=== PATIENT | male | born 1945 | race Caucasian/White ===

== ENCOUNTER 2023-12-10 13:40 | Outpatient (CLI) | payer MEDICARE, SELFPAY ==
--- NOTE | ~2023-12-10 | XR_ITS ---
EXAMINATION: XR chest 2V 12/10/2023 14:03 INDICATION: Shortness of breath with exertion PROCEDURE: 2 view chest COMPARISON: 09/03/2022 FINDINGS: The lungs are clear. The cardiomediastinal silhouette is within normal limits. There are no pleural effusions. There is no pneumothorax suspected. 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 There is dextroscoliosis. IMPRESSION: 1: NO ACUTE CARDIOPULMONARY DISEASE. Reviewed, dictated and finalized at location B.
== END 2023-12-10 13:41 | disposition home or self-care (01) ==
PROVIDERS: PCP Physician Assistant Medical; Visit Provider Internal Medicine Pulmonary Disease
DX: R06.02 Shortness of breath (principal); R06.09 Other forms of dyspnea
CPT/HCPCS: 71046

== ENCOUNTER 2025-03-01 15:33 | Outpatient (CLI) | payer MEDICARE, SELFPAY ==
--- NOTE | ~2025-03-01 | XR_ITS ---
XR lumbar spine min 4V INDICATION:M48.062 - Spinal stenosis, lumbar region with neurogenic ... REFERENCE: None TECHNIQUE: AP, lateral and oblique views of the lumbar spine as well as coned- down views of L5-S1 were obtained. FINDINGS: Superior endplate depression of L1 and L2 vertebral body may be degenerative or reflective of chronic degenerative changes. There is levoscoliosis centered at L2-L3 levels. Degenerative changes with disc space narrowing and anterior osteophytes are noted. No acute appearing compression fracture or spondylolysis. Flexion and extension views demonstrate no significant instability. IMPRESSION: No acute compression fracture or spondylolysis. Degenerative changes as above. Reviewed, dictated and finalized at location S. E SYSTEMS INSTALLER
--- NOTE | ~2025-03-01 | XR_ITS ---
EXAM/PROCEDURE: XR scoliosis survey HISTORY: M48.062 - Spinal stenosis, lumbar region with neurogenic ... COMPARISON: None available. TECHNIQUE: Scoliosis survey FINDINGS: Sigmoidal scoliotic curvature of the thoracolumbar spine present with the dominant curvature being 15 degrees of levoscoliosis No gross acute or aggressive bony or soft tissue process seen. No obvious segmentation anomaly seen. as measured along the anterior endplate of L2 and superior endplate of L4. Less than 10 degrees compensatory dextroscoliosis of the thoracic spine present as measured from the inferior endplate of T5, and inferior endplate of T10. Diffuse degenerative changes throughout the thoracolumbar spine. IMPRESSION: Mild sigmoidal scoliotic curvature with the dominant curvature being approximately 15 degrees of levoscoliosis of the lumbar spine as detailed above. Reviewed, dictated and finalized at location A. WASHER BUSSER IMPRESSION: Mild sigmoidal scoliotic curvature with the dominant curvature bein g approximately 15 degrees of levoscoliosis of the lumbar spine as detailed abo ve.
--- NOTE | ~2025-03-01 | CT_ITS ---
EXAMINATION: CT lumbar spine wo con DATE: 03/01/2025 16:08 INDICATION: Lumbar spinal stenosis TECHNIQUE: Computed tomography (CT) of the lumbar spine was performed without intravenous contrast. Automated exposure control and iterative reconstruction technique were employed. The dose-length product was 840.63 mGy-cm. COMPARISON: Radiographs dated 09/15/2024 FINDINGS: 20 degree thoracolumbar levoscoliosis. L5 spondylolysis with bilateral pars intra-articular is defects and 6 mm anterolisthesis on S1. Unchanged chronic mild anterior wedging at T10-T12. Lumbar vertebral body heights are normal. No fractures. There are solidly bridging osteophytes extending from T10 through L3, nearly bridging osteophytes at L4-L5 and L5-S1 and ankylosis of the bilateral sacroiliac joints, all consistent with diffuse idiopathic skeletal hyperostosis (DISH). Moderate disc height loss at T10-T11 with minimal to mild disc height loss at remaining levels from T9-T10 through L5-S1. 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 There is no neural foraminal stenosis. There is no central canal stenosis. T10-T11: Small right paracentral disc protrusion. There is mild left and moderate right facet osteoarthritis. There is mild right neural foraminal stenosis. There is mild central canal stenosis. T11-T12: There is moderate left and severe right facet joint osteoarthritis. There is mild bilateral neural foraminal stenosis. There is no central canal stenosis. T12-L1: Disc is mildly bulging. There is moderate left and severe right facet joint osteoarthritis. There is mild right neural foraminal stenosis. There is minimal central canal stenosis. L1-L2: Disc is mildly bulging. There is mild left and moderate right facet joint osteoarthritis. There is mild left and moderate right neural foraminal stenosis. There is mild central canal stenosis. L2-L3: Disc is bulging. There is severe bilateral facet joint osteoarthritis. There is mild left and mild to moderate right neural foraminal stenosis. There is moderate central canal stenosis. L3-L4: Disc is bulging. There is severe bilateral facet joint osteoarthritis. There is moderate left and moderate to severe right neural foraminal stenosis. There is moderate to severe central canal stenosis. L4-L5: Disc is bulging. There is severe bilateral facet joint osteoarthritis. There is moderate left and mild to moderate right neural foraminal stenosis. There is mild central canal stenosis. L5-S1: Disc is bulging. 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 There is mild right and moderate left neural foraminal stenosis. There is mild central canal stenosis. IMPRESSION: 1. 20 degree thoracolumbar levoscoliosis with bridging osteophytes from T9 through T3 and nearly bridging osteophytes and lower lumbar spine consistent with diffuse idiopathic skeletal hyperostosis (DISH). 2. mild spondylosis most notable for moderate to severe central canal and right sided neural foraminal stenosis at L3-L4. 2. L5 spondylolysis with bilateral pars interarticularis defects and 6 mm anterolisthesis on S1. Reviewed, dictated and finalized at location A. [facility] [facility] [employer] IMPRESSION: 1. 20 degree thoracolumbar levoscoliosis with bridging osteophytes from T9 thro ugh T3 and nearly bridging osteophytes and lower lumbar spine consistent with d iffuse idiopathic skeletal hyperostosis (DISH). 2. mild spondylosis most notable for moderate to severe central canal and right sided neural foraminal stenosis at L3-L4. 2. L5 spondylolysis with bilateral pars interarticularis defects and 6 mm anter olisthesis on S1.
--- OUTSIDE RECORDS SUMMARY | 2025-03-01 16:13 | XMS_ITS | Encounter Summary ---
Author Organization [facility] Address [facility] [place] [address] Care Team Providers Care Director Work Name Role Phone None, Provider Primary Care Provider Loretta Artis PA-C Primary Care Provider +1- [phone] Encounter Details Date Type Department Care Team (Late st Contact Info) Description 07/23/2015 Abstract [facility] CONVERSION [address] [place] [address] , Generic Conversion, Social History Tobacco Use Types Packs/Day Years Used Date Smoking Tobacco: Former Sex and Gender Information Value Date Recorded Sex Assigned at Not on file Legal Sex Male 5:01 PM CDT Gender Identity Not on file Sexual Orientation Not on file documented as of this encounter Plan of Treatment Not on file documented as of this encounter Visit Diagnoses Not on filedocumented in this encounter Additional Health Concerns Infection Onset Date Last Indicated Resolved Time 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
--- OUTSIDE RECORDS SUMMARY | 2025-03-01 16:13 | XMS_ITS | Data Portability ---
Author Organization [place] [facility] [employer], Main Office Address [address] [place] [address] Assessment Encounter Date Assessment Date Assessment LastModified by Organization Details LastModified Time 09/22/2022 09/22/2022 Impression: Patient has well-functioning right knee Nav[place] partial knee replacement medial compartment from 2016 and left knee total knee arthroplasty from 2011. His main problem is exercised induced shortness of breath and exhaustion. I would recommend that he return to see the business support liaison for further evaluation. He may need an echocardiogram and may need to consider cardiac catheterization to rule out false negative stress test. If these are negative then pulmonary evaluation may be indicated. I will be happy to see him back in 5 years for routine radiographic surveillance of both of his knee replacements and coursing he has any problems in the meantime he will call. 30 minutes were spent total care this patient more than half the time spent in [id number] care. [email or web address] Not available 09/22/2022 14:53:11 Plan of Treatment Reminders Order Date Submit Date Provider Last Modified By Organization Details Last Modified Time Details Appointments None record ed. Lab None record ed. Referral None record ed. Procedures None record ed. Surgeries None record ed. Imaging XR, knee 023 09/23/19 23 [email or web address] [place], [address], [place], [address], 3 16:12:26 Medication Orders None record ed. Patient TargetsNo targets recorded. Patient InstructionsNo instructions recorded. Reason for Referral None Reported. Results Created Date Observation Date Name Description Value Unit Range Abnormal Flag Note LastModifiedBy Organization Detail LastModifiedTime 09/23/19 XR, knee No observ ation record ed. [email or web address] [facility] [place] [address], [place], [address], 09/22/2022 14:53:57 Result Notes None recorded. 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 Medical Equipment None Reported. Medications Name Sig Start Date Stop Date Status Note LastModified by Organization Details LastModified Time celecoxib 200 mg capsule 09/05 completed Not Available Not Available Not Available amoxicillin 500 mg capsule 09/05 completed Not Available Not Available Not Available prednisone 10 mg tablet TAKE 3 TABS DAILY FOR 3DAYS, THEN 2 TABS DAILY FOR 3DAYS, THEN 1 TAB DAILY FOR 3DAYS 09/22 completed Not Available Not Available Not Available azithromyci n 250 mg tablet 09/05 completed Not Available Not Available Not Available hydrocodone 5 mg-acetamin ophen 325 mg tablet 09/05 completed Not Available Not Available Not Available phenazopyri dine 200 mg tablet TAKE 1 TABLET BY MOUTH THREE TIMES A DAY NEEDED FOR PAIN 09/22 completed Not Available Not Available Not Available amlodipine 5 mg tablet TAKE 1 TABLET BY MOUTH EVERY DAY 09/22 completed Not Available Not Available Not Available ciprofloxac in 500 mg tablet 09/05 completed Not Available Not Available Not Available hydrocodone 10 mg-acetamin ophen 325 mg tablet 09/05 completed Not Available Not Available Not Available oxycodone-a cetaminophe n 5 mg-325 mg tablet 09/05 completed Not Available Not Available Not Available amoxicillin 875 mg tablet 09/05 completed Not Available Not Available Not Available aspirin 325 mg tablet,lady yed release TAKE 1 TABLET BY MOUTH TWICE A DAY 09/05 completed Not Available Not Available Not Available tamsulosin 0.4 mg capsule 09/05 completed Not Available Not Available Not Available meclizine 25 mg tablet TAKE 1 TABLET BY MOUTH THREE TIMES A DAY NEEDED FOR DIZZINESS 09/22 completed Not Available Not Available Not Available oseltamivir 75 mg capsule 09/05 completed Not Available Not Available Not Available docusate sodium 100 mg capsule TAKE 1 CAPSULE BY MOUTH DAILY FOR 10 DAYS. 09/22 completed Not Available Not Available Not Available levofloxaci n 500 mg tablet 09/05 completed Not Available Not Available Not Available levofloxaci n 750 mg tablet 09/05 completed Not Available Not Available Not Available amoxicillin 875 mg-potassiu m clavulanate 125 mg tablet TAKE 1 TABLET BY MOUTH TWICE A DAY 09/22 completed Not Available Not Available Not Available Vitals Date Recorded Body height Body mass index (BMI) Body weight Provider Name and Address Organization Details Last Updated DateTime 09/22/2022 165.1 cm 32.3 kg/m2 37115.92 g ABBIE Lowery [facility] [employer] 09/22/2022 14:20:37 Social History None recorded. Functional Status Question Answer Note LastModified by Organization D etails LastModified Time What is your level of alcohol consumption? None [email or web address] Information not available 09/22/2022 Mental Status None recorded. Family History Nothing Reported. Medical History Condition Response ARTHRITIS Y Past Encounters Encounter ID Performer Location Encounter Start Date Encounter Closed Date Diagnosis/Indication Diagnosis SNOMED-CT Code Diagnosis ICD10 Code Diagnosis IMO Codes Diagnosis Note [id number] Mario Alberto Dahl MD [facility] [place] [address] [place] [address] 09/22/2022 13:59:49 09/22/2022 15:30:33 Pain of bilateral knee joints 9265908606 64883 M25.561 M25.562 Health Concerns Section Related Observation LastModified by Organization Detai ls LastModified Time None Recorded Concern Status LastModified by Organization Details LastModified Time None Recorded Advance Directives Directive None Recorded Payers Insurance Date Sequence Insurance Name Policy Number Policy Mccullough Covered Member ID Mccullough Member ID Guarantor Name 09/10/2022 1 [employer] [id number] Mandeep Barrett [id number] Mandeep Barrett 09/25/2022 1 [employer] (MEDICARE REPLACEMENT /ADVANTAGE - PPO) [id number] Brandon Barrett [id number] Mandeep Barrett Notes Date Note Type Note Provider Name and Address Organization Details Recorded Time 09/22/2022 text/html Patient returns. He is now 6 years after Navajo partial knee replacement right knee. He is now 11 years after total knee replacement left knee done by Dr. Saucedo. He is having no pain or symptoms in either knee. his chief complaint though is excessive exercised induced fatigue. He gets short of breath walking. He cannot walk half a block before he has to sit down because he feels out of breath and exhausted. He does not get any numbness or tingling in his legs he denies any back pain he denies any pain or other symptoms in his legs. He had a retired 2 years ago. He had been walking 3-4 miles every night at work and could not tolerate this anymore. One year ago he had a cardiac stress test a treadmill test. It caused him to become very short of breath but the test was negative. Mario Alberto Dahl MD [address] [place] [address], [place] [address], [place], [address], [place] [facility] 09/22/2022 14:54:13
--- OUTSIDE RECORDS SUMMARY | 2025-03-01 16:13 | XMS_ITS | Encounter Summary ---
Author Organization [facility] Address [facility] [place] [address] Care Team Providers Care Bottom Buffer Name Role Phone Loretta Jung PA-C Primary Care Provider +1- [phone] Encounter Details Date Type Department Care Team (Late st Contact Info) Description 11/19/2022 Abstract [facility], [address] [address] Lupe Landon MA Social History Tobacco Use Types Packs/Day Years Used Date Smoking Tobacco: Former Cigarettes Q uit: 01/11/1979 Smokeless Tobacco: Never Alcohol Use Standard Drinks/Week Comments No 0 (1 standard drink = 0.6 oz pur e alcohol) AUDIT-C Answer Date Recorded Frequency of Alcohol Consumption Never 01/11/2019 Average Number of Drinks Not on file 019 Frequency of Binge Drinking Not on file 12/20 PHQ-2 Answer Date Recorded PHQ-2 Score - If the patient scores above 3, please move on to questions 3-9 0 11/07/2021 Sex and Gender Information Value Date Recorded Sex Assigned at Not on file Legal Sex Male 5:01 PM CDT Gender Identity Not on file Sexual Orientation Not on file documented as of this encounter Functional Status * RETIRED Are you deaf or do you have serious difficulty hearing Answer Date of Assessment Author Status No 10/22/2021 11:00 AM CDT Acti ve * RETIRED Are you blind or do you have serious difficulty seeing, even when wearing glasses? Answer Date of Assessment Author Status No 10/22/2021 11:00 AM CDT Acti ve * Do you have serious difficulty walking or climbing stairs? Answer Date of Assessment Author Status No 10/22/2021 11:00 AM Holly Guerrier RN Active * Do you have difficulty dressing or bathing? Answer Date of Assessment Author Status No 10/22/2021 11:00 AM Holly Guerrier RN Active * Because of a physical, mental, or emotional condition, do you have difficulty doing errands alone such as visiting a doctor's office or shopping? Answer Date of Assessment Author Status No 10/22/2021 11:00 AM Holly Guerrier RN Active documented as of this encounter Mental Status * Because of a physical, mental, or emotional condition, do you have serious difficulty concentrating, remembering, or making decisions? Answer Entry Date Author Status No 10/22/2021 11:00 AM Holly Guerrier RN Active documented in this encounter Plan of Treatment Not on file documented as of this encounter Procedures Procedure Name Priority Date/Time Associated Diagnosis Comments COMPREHENSIVE METABOLIC PANEL Routine 10/02/2022 LIPID PANEL Routine 09/03/2022 CBC, MANUAL DIFF Routine 09/03/2022 documented in this encounter Results * COMPREHENSIVE METABOLIC PANEL (10/02/2022) SODIUM S/P/B 140 GLUCOSE 90 mg/dL BUN 17 CREATININE S/P/B 1.15 0.7 - 1.3 CALCIUM S/P/B 9.7 POTASSIUM S/P/B 3.8 CHLORIDE S/P/B 103 GFR ESTIMATE 66 Narrative Resulting Agency Comment us Default History Genericprovider LABORATORY Final Result * LIPID PANEL (09/03/2022) CHOLESTEROL 173 TRIGLYCERIDES 91 HDL 42 LDL (CALCULATED) 112 NON HDL CHOLESTEROL 131 Narrative Resulting Agency Comment us Default History Genericprovider LABORATORY Final Result * CBC, MANUAL DIFF (09/03/2022) WBC 7.0 HGB 13.0 HCT 39.4 PLT 58 Narrative Resulting Agency Comment us Default History Genericprovider LABORATORY Final Result documented in this encounter Visit Diagnoses Not on filedocumented in this encounter Additional Health Concerns Infection Onset Date Last Indicated Resolved Time 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
--- OUTSIDE RECORDS SUMMARY | 2025-03-01 16:13 | XMS_ITS | Clinical Summary ---
Author Organization [facility] Address [facility] [place] [address] Care Team Providers Care Library Circulation Technician Name Role Phone Loretta Jung PA-C Primary Care Provider +1- [phone] Allergies No known active allergies Medications amlodipine 5 MG tablet Take 1 tablet (5 mg total) by mouth daily. 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 Overview (09/26/2021): Added automatically from request for surgery [id number] Gastrointestinal hemorrhage, unspecified gastrointestinal hemorrhage type 08/06/2021 Overview (08/06/2021): Added automatically from request for surgery [id number] Immunizations Immunization Administration Dates Next Due Hepatitis B (Generic: Adult) 11/12/2015,06/19/19 16,05/15/2015 PFIZER COVID-19 (ORIGINAL FO RMULATION, PURPLE CAP) mRNA, LNP-S, PF, 30 MCG/0.3 ML DOSE 08/22/2021,2021,01/01/2021 Family History Medical History Relation Comments No Known Problems Father No Known Problems Mother Relation Status Comments Father Mother Social History Tobacco Use Types Packs/Day Years Used Date Smoking Tobacco: Former Cigarettes Q uit: 01/11/1979 Smokeless Tobacco: Never Tobacco Cessation:Counseling Given: No Alcohol Use Standard Drinks/Week Comments No 0 [...] on file Sexual Orientation Not on file Last Filed Vital Signs Vital Sign Reading Time Taken Comments Blood Pressure 150/80 11/13/2022 11:51 AM CDT Pulse 75 11/13/2022 11:51 AM CDT Temperature 36.1 C (97 F) 11/07/2021 10:36 AM CDT Respiratory Rate 18 10/23/2021 5:00 AM CDT Oxygen Saturation 98% 11/07/2021 10:36 AM CDT Inhaled Oxygen Concentration - - Weight 89.8 kg (198 lb) 11/13/2022 11:51 AM CDT Height 162.6 cm (5' 4) 11/13/2022 11:51 AM CDT Body Mass Index 33.99 11/13/2022 11:51 AM CDT Plan of Treatment Health Maintenance Due Date Last Done Comments Hepatitis C 01/23/1963 DTaP, Tdap and Td Vaccines ( 1 - Tdap) 1965 Pneumococcal Vaccine: 50+ Years (1 of 1 - PCV) 01/23/1996 Zoster Vaccines (1 of 2) 01/23/1996 Annual Medicare Wellness Visit 2011 RSV Immunization or 60+ Years (1 - 1-dose 75+ series) 2021 COVID-19 Vaccine (4 - 2024-2 6 season) 2024 08/22/2021, 2021, 01/01/2021 Influenza Adult (#1) 2025 Colorectal Cancer Screening FIT/FOBT (1 Year) Discontinued 07/16/2021 Colorectal Cancer Screening Colonoscopy (10 Years) Discontinued 08/14/2021 Hepatitis A Vaccines Aged Out No long er eligible based on patient's age to complete this topic Meningococcal B Vaccine Aged Out No l onger eligible based on patient's age to complete this topic Meningococcal Vaccine Aged Out No amara dona eligible based on patient's age to complete this topic RSV Immunizations Under 20 Months Aged Out No longer eligible based on patient's age to complete this topic Procedures Procedure Name Priority Date/Time Associated Diagnosis Comments OCCULT BLOOD, FECES STAT 07/16/2021 3 :08 PM CDT from Last 3 Months or Most Recently Relevant to Health Maintenance Results * (ABNORMAL) OCCULT BLOOD, FECES (07/16/2021 3:08 PM CDT) OCCULT BLOOD FECAL POSITIVE(A ) NEGATIVE 07/16/2021 3:37 PM CDT [facility] STOOL SPECIMEN / Unknown 07/16/2021 3:08 PM CDT Dexter Anderson MD BODY FLUIDS AND STOOLS ORDERABL ES Final Result [facility] [address] [place] [id number], [place] [phone] from Last 3 Months or Most Recently Relevant to Health Maintenance Additional Health Concerns Infection Onset Date Last Indicated 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
--- OUTSIDE RECORDS SUMMARY | 2025-03-01 16:13 | XMS_ITS | Encounter Summary ---
Author Organization [facility] Address [facility] [place] [address] Care Team Providers Care Email Producer Name Role Phone Loretta Jung PA-C Primary Care Provider +1- [phone] Encounter Details Date Type Department Care Team (Late st Contact Info) Description 04/04/2021 Pre-Procedure Call [facility] [address] [place] [address] [facility]. [address] [address] Social History Tobacco Use Types Packs/Day Years Used Date Smoking Tobacco: Former Cigarettes Q uit: 01/11/1979 Smokeless Tobacco: Never Alcohol Use Standard Drinks/Week Comments No 0 (1 standard drink = 0.6 oz pur e alcohol) AUDIT-C Answer Date Recorded Frequency of Alcohol Consumption Never 01/11/2019 Average Number of Drinks Not on file 019 Frequency of Binge Drinking Not on file 12/20 Sex and Gender Information Value Date Recorded Sex Assigned at Not on file Legal Sex Male 5:01 PM CDT Gender Identity Not on file Sexual Orientation Not on file COVID-19 Exposure Response Date Recorded In the last month, have you been in contact with someone who was confirmed or suspected to have Coronavirus / COVID-19? 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
--- OUTSIDE RECORDS SUMMARY | 2025-03-01 16:13 | XMS_ITS | Encounter Summary ---
Author Organization [facility] Address [facility] [place] [address] Care Team Providers Care Home Office Representative Name Role Phone None, Provider Primary Care Provider Loretta Artis PA-C Primary Care Provider +1- [phone] Encounter Details Date Type Department Care Team (Late st Contact Info) Description 07/02/2016 Abstract [facility] CONVERSION [address] [place], [place] [id number] , Generic Conversion, Social History Tobacco Use [...] documented as of this encounter Care Teams Home Office Representative Relationship Specialty Start Date End Date None, Provider, PCP - General 01/11/19 03/19/21 Loretta Jung PA-C PCP - General PHYSICIAN JOB FORWARDER 03/20/21 documented as of this encounter
== END 2025-03-01 15:34 | disposition home or self-care (01) ==
PROVIDERS: PCP Physician Assistant Medical; Visit Provider Nurse Practitioner Adult Health
DX: M48.062 Spinal stenosis, lumbar region with neurogenic claudication (principal)
CPT/HCPCS: 72082; 72110; 72131